=== PATIENT | female | born 1950 | race Caucasian/White ===

== ENCOUNTER 2018-07-11 09:21 | Day surgery (SDC) | payer OTHER ==
[2018-07-04 17:16] VITALS: BMI 20.8
[2018-07-11] MEDS ORDERED: LIDOCAINE HCL/PF 2% SDV 5ML VIAL ONE (09:26)
[2018-07-11] MEDS ORDERED: PROPOFOL 20 ML ONE ×2 (09:27)
[2018-07-11 09:59] VITALS: TEMP 98
[2018-07-11 11:43] VITALS: BP 118/79; PULSE 77
--- NOTE | 2018-07-16 15:18 | PATH ---
Surgical Pathology Report Patient Name: QUINTON HUNT [facility]. Rec. #: [id number] /Age/Gender: 1950 (Age: 67) / F Account: [id number] Location: [facility] Taken: 07/11/2018 Received: 07/11/2018 Reported: 07/16/2018 Physicians: Mey Singh M.D. Specimen(s) Received A: SECOND PORTION DUODENUM B: BX ANTRUM C: BX GE JUNCTION Clinical History r/o celiac disease, duodenitis, r/o H. pylori gastritis, r/o Cruz's esophagus Final Diagnosis A. SECOND PORTION OF DUODENUM, BIOPSY: DUODENAL MUCOSA WITH NO PATHOLOGIC FINDINGS. Note: Features suggestive of celiac disease are not identified in this biopsy. B. ANTRUM, BIOPSY: MILD CHRONIC GASTRITIS. IMMUNOSTAIN IS NEGATIVE FOR H. PYLORI ORGANISMS. C. GE JUNCTION, BIOPSY: COLUMNAR (GASTRIC- TYPE) MUCOSA SHOWING MILD CHRONIC INFLAMMATION. NEGATIVE INTESTINAL METAPLASIA. NO ESOPHAGEAL (SQUAMOUS) MUCOSA IS IDENTIFIED. Electronically Signed Vandana Villegas M.D. Gross Description A. Received in formalin, labeled "second portion of duodenum" is one piece of wang tissue measuring 0.4 cm in greatest dimension. Entirely submitted one cassette. B. Received in formalin, labeled "antrum" are two pieces of wang tissue measuring 0.1 cm to 0.3 cm in greatest dimension. Entirely submitted in one cassette. C. Received in formalin, labeled "GE junction" is one piece of wang tissue measuring 0.3 cm in greatest dimension. Entirely submitted one cassette. ebram/07/11/2018
== END 2018-07-11 11:45 | disposition home or self-care (01) ==
LOC: FASU-ENDO 09:21
PROVIDERS: ATTEND Internal Medicine Gastroenterology
PROC: 0DB38ZX Excision of Lower Esophagus, Via Natural or Artificial Opening Endoscopic, Diagnostic (ICD-10-PCS; 2018-07-11)
PROC: 0DB98ZX Excision of Duodenum, Via Natural or Artificial Opening Endoscopic, Diagnostic (ICD-10-PCS; principal; 2018-07-11 10:48)
PROC: 0DB68ZX Excision of Stomach, Via Natural or Artificial Opening Endoscopic, Diagnostic (ICD-10-PCS; 2018-07-11 10:48)
DX: K29.50 Unspecified chronic gastritis without bleeding (principal); K20.8 Other esophagitis; K21.9 Gastro-esophageal reflux disease without esophagitis; R10.13 Epigastric pain
CPT/HCPCS: 88305-TC; 88342-TC